=== PATIENT | female | born 1960 | race American Indian/Alaskan Native ===

== ENCOUNTER 2018-11-05 18:54 | Inpatient (IN) | payer MEDICAID | END 2018-11-09 20:23 | disposition home or self-care (01) | LOC: C.5S 11-06 07:17 → C.ER 18:54 → C.3T 23:10 → C.9E 23:48 ==

== ENCOUNTER 2018-11-26 09:56 | Outpatient (CLI) | payer MEDICAID | END 2018-11-26 11:31 | disposition still patient (30) | LOC: C.VASC 09:56 | DX: I87.2 Venous insufficiency (chronic) (peripheral) (principal) ==

== ENCOUNTER 2018-11-26 11:32 | Inpatient (IN) | payer MEDICAID ==
[2018-11-26 11:50] VITALS: BMI 36.3
[2018-11-26 12:58] LABS: BASO # 0.1 K/uL (0.0-0.2); BASO % 0.9 % (0.0-2.0); EOS # 0.2 K/uL (0.0-0.7); EOS % 2.8 % (0.0-4.0); HEMOGLOBIN 11.5 g/dL (11.0-16.0); LYMPH # 1.9 K/uL (1.0-4.3); LYMPH % 24.4 % (20.0-40.0); MEAN CELL VOLUME 75.9 fL (81.0-99.0); MEAN CORPUSCULAR HEMOGLOBIN 23.9 pg (27.0-31.0); MEAN CORPUSCULAR HGB CONC 31.5 g/dL (33.0-37.0); MEAN PLATELET VOLUME 9.6 fL (7.2-11.7); MONO # 0.6 K/uL (0.0-0.8); MONO % 8.4 % (0.0-10.0); NEUT # 4.9 K/uL (1.8-7.0); NEUT % 63.5 % (50.0-75.0); NRBC % 0.1 % (0.0-2.0); RBC 4.8 Mil/uL (3.80-5.20); RED CELL DISTRIBUTION WIDTH 14.4 % (11.5-14.5); WHITE BLOOD COUNT 7.6 K/uL (4.8-10.8)
[2018-11-26 13:02] LABS: URINE BACTERIA RARE (<OCC); URINE BILIRUBIN NEGATIVE (NEGATIVE); URINE BLOOD NEGATIVE (NEGATIVE); URINE CLARITY Clear (Clear); URINE COLOR Colorless (YELLOW); URINE GLUCOSE (UA) NORMAL (Normal); URINE LEUKOCYTE ESTERASE NEG Leu/uL (Negative); URINE PROTEIN NEGATIVE (NEGATIVE); URINE UROBILINOGEN NORMAL mg/dL (0.2-1.0)
--- NOTE | 2018-11-26 13:16 | RAD ---
HISTORY: Cough COMPARISON: Chest x-ray performed 10/14/15 TECHNIQUE: Chest PA and lateral FINDINGS: Examination limited by habitus. LUNGS: Mild interstitial prominence may reflect infection or edema. Please note that chest x-ray has limited sensitivity for the detection of pulmonary masses. PLEURA: No significant pleural effusion identified. No definite pneumothorax . CARDIOVASCULAR: Cardiomegaly. Faint atherosclerotic calcifications. OSSEOUS STRUCTURES: Degenerative changes. VISUALIZED UPPER ABDOMEN: Unremarkable. OTHER FINDINGS: None. IMPRESSION: Mild interstitial prominence may reflect infection or edema. Cardiomegaly.
[2018-11-26 13:27] LABS: ALB/GLOB RATIO 1.2 (1.0-2.1); ALBUMIN 4.2 g/dL (3.5-5.0); ALT/SGPT 13 U/L (9-52); AST/SGOT 40 U/L (14-36); BLOOD UREA NITROGEN 17 mg/dL (7-17); CALCIUM 9.6 mg/dl (8.6-10.4); GFR NON-AFRICAN AMERICAN > 60
--- NOTE | 2018-11-26 13:56 | C.PDOC ---
History Of Present Illness 58 year old female, whose past medical history includes uncontrolled hypertension, chr venous stasis, presents to the ED after being referred by vascular lab for evaluation of (+) DVT in right lower extremity. Patient was referred for Doppler study by Dr. Christianson. Pt reports, " was taking multiple HTN medication without lowering BP". Pt denies severe headache, dizziness, visual changes, focal deficits, neck pain, CP< SOB, palpitation, denies weakness, sensory or vascular deficits to B/L lEs. Appears comfortable, not in any apparent distress. Time Seen by Provider: 11/26/18 12:31 Chief Complaint (Nursing): Lower Extremity Problem/Injury History Per: Patient Past Medical History Reviewed: Historical Data, Nursing Documentation, Vital Signs Vital Signs: Last Vital Signs Temp 98.4 F 11/26/18 11:51 Pulse 53 L 11/26/18 11:51 Resp 18 11/26/18 11:51 BP 192/82 H 11/26/18 11:51 Pulse Ox 100 11/26/18 11:51 - Medical History PMH: Arthritis, CHF (diastolic), HTN, Hypercholesterolemia Denies: Atrial Fibrillation, Chronic Kidney Disease Surgical History: Hernia Repair - [facility] Procedures RELEASE TRANSVERSE COLON, OPEN APPROACH (11/05/18) REPAIR ABDOMINAL WALL, OPEN APPROACH (11/05/18) VACCINATION NEC (05/25/14) Family History: States: Unknown Family Hx - Social History Hx Tobacco Use: No Hx Alcohol Use: No Hx Substance Use: No - Immunization History Hx Tetanus Toxoid Vaccination: No Hx Influenza Vaccination: No Hx Pneumococcal Vaccination: No Review Of Systems Except As Marked, All Systems Reviewed And Found Negative. Constitutional: Negative for: Fever, Chills Eyes: Negative for: Vision Change ENT: Negative for: Ear Discharge Cardiovascular: Negative for: Chest Pain, Palpitations, Orthopnea, Paroxysmal Noc. Dyspnea, Edema, Light Headedness Respiratory: Negative for: Cough, Shortness of Breath Gastrointestinal: Negative for: Nausea, Vomiting, Abdominal Pain Musculoskeletal: Positive for: Leg Pain Neurological: Negative for: Weakness, Numbness, Headache, Dizziness Physical Exam - Physical Exam Appears: Well, Non-toxic, No Acute Distress Skin: Normal Color, Warm Head: Normacephalic Eye(s): bilateral: PERRL Throat: No Drooling Neck: Trachea Midline, Supple Cardiovascular: Rhythm Regular, No Murmur, No JVD Respiratory: No Decreased Breath Sounds, No Accessory Muscle Use, No Stridor, No Wheezing Gastrointestinal/Abdominal: Soft, No Tenderness, No Distention, No Guarding, No Rebound Back: No CVA Tenderness Extremity: Normal ROM, Calf Tenderness (right), Capillary Refill (good B/L <2sec), No Deformity, No Swelling, Other (skin discoloration B/L lower legs) ED Course And Treatment - Laboratory Results Result Diagrams: 11/26/18 12:51 11/26/18 12:51 Lab Results: PT 11.0 SECONDS (9.7-12.2) 11/26/18 12:00 INR 1.0 11/26/18 12:00 APTT 32 SECONDS (21-34) 11/26/18 12:00 Total Bilirubin 0.4 mg/dL (0.2-1.3) 11/26/18 12:51 AST 40 U/L (14-36) H D 11/26/18 12:51 ALT 13 U/L (9-52) 11/26/18 12:51 Alkaline Phosphatase 85 U/L (38-126) 11/26/18 12:51 Total Protein 7.7 g/dL (6.3-8.3) 11/26/18 12:51 Albumin 4.2 g/dL (3.5-5.0) 11/26/18 12:51 Globulin 3.5 gm/dL (2.2-3.9) 11/26/18 12:51 Albumin/Globulin Ratio 1.2 (1.0-2.1) 11/26/18 12:51 Urine Color Colorless (YELLOW) 11/26/18 12:51 Urine Clarity Clear (Clear) 11/26/18 12:51 Urine pH 7.0 (5.0-8.0) 11/26/18 12:51 Ur Specific [place] 1.005 (1.003-1.030) 11/26/18 12:51 Urine Protein Negative mg/dL (NEGATIVE) 11/26/18 12:51 Urine Glucose (UA) Normal mg/dL (Normal) 11/26/18 12:51 Urine Ketones Negative mg/dL (NEGATIVE) 11/26/18 12:51 Urine Blood Negative (NEGATIVE) 11/26/18 12:51 Urine Nitrate Negative (NEGATIVE) 11/26/18 12:51 Urine Bilirubin Negative (NEGATIVE) 11/26/18 12:51 Urine Urobilinogen Normal mg/dL (0.2-1.0) 11/26/18 12:51 Ur Leukocyte Esterase Neg Bravo/uL (Negative) 11/26/18 12:51 Urine RBC (Auto) < 1 /hpf (0-3) 11/26/18 12:51 Urine Bacteria Rare (<OCC) 11/26/18 12:51 ECG: Interpreted By Me, Viewed By Me Interpretation Of ECG: Sius shamika@52/min,LVH, T wave inversion in I,AVL, no acute ST-T changes O2 Sat by Pulse Oximetry: 100 (on RA) Pulse Ox Interpretation: Normal - Other Rad CXR X-Ray: Read By Radiologist Interpretation: Accession No. : [id number]. Patient Name / ID : AJITH HARTMANN / [id number]. Exam Date : 11/26/2018 12:50:26 ( Approved ). Study Comment : Sex / Age : F / 58Y. Creator : ismael stephens. Dictator : Rosy Velázquez MD. Taker Down : Dye Operator : Rosy Velázquez MD. Approver2 : Report Date : 11/26/2018 13:05:17. My Comment : . HISTORY: Cough. COMPARISON: Chest x-ray performed 10/14/15. TECHNIQUE: Chest PA and lateral. FINDINGS: Examination limited by habitus. LUNGS: Mild interstitial prominence may reflect infection or edema. Please note that chest x-ray has limited sensitivity for the detection of pulmonary masses. PLEURA: No significant pleural effusion identified. No definite pneumothorax . CARDIOVASCULAR: Cardiomegaly. Faint atherosclerotic calcifications. OSSEOUS STRUCTURES: Degenerative changes. VISUALIZED UPPER ABDOMEN: Unremarkable. OTHER FINDINGS: None. IMPRESSION: Mild interstitial prominence may reflect infection or edema. Cardiomegaly. - CT Scan/US CTA chest PE protocol Other Rad Studies (CT/US): Radiology Report Reviewed CT/US Interpretation: Accession No. : [id number]. Patient Name / ID : AJITH HARTMANN / [id number]. Exam Date : 11/26/2018 14:20:18 ( Approved ). Study Comment : Sex / Age : F / 58Y. Creator : Rosy Velázquez MD. Dictator : Rosy Velázquez MD. Taker Down : Dye Operator : Rosy Velázquez MD. Approver2 : Report Date : 11/26/2018 14:58:08. My Comment : . Date of service: 2018-11-26 14:20:18. CTA chest PE protocol. Indication: HTN, CP, DVT. Technique: Contiguous axial images were obtained through the chest with intravenous contrast enhancement. Sagittal and coronal reconstructions were generated and reviewed. This CT exam was performed using 1 or more of the following dose reduction techniques: Automated exposure control, adjustment of the MAA and/or kV according to patient size, and/or use of iterative reconstruction technique. IV contrast: 100 mL Visipaque 320 IV. . Radiation dose (DLP): 608.13 MGy-cm. Comparison: Chest x-ray performed 11/26/18. Findings: Visualized portions of the inferior thyroid gland appear unremarkable. The mediastinal and hilar vascular structures appear within normal limits. Cardiomegaly. No large central or segmental pulmonary embolus evident. Subtle mosaic perfusion. No focal consolidation. No pleural effusion. No pneumothorax. No suspicious pulmonary nodules measuring greater than 5 mm. Limited visualized portions of the upper abdomen appear grossly unremarkable. 15 mm and 5 mm probable splenules. Degenerative changes of the spine. Impression: No large central or segmental pulmonary embolus identified. Subtle mosaic perfusion reflect small airways disease. No focal consolidation. Cardiomegaly. Progress Note: Pt remained stable during the ED evaluation. Case discussed with and recommend to stabilize BP before start anticoagulation. Admisison to tele arranged. Critical Care Time - Critical Care Note Total Time (in mins): 30 Documented critical care: time excludes all time spent performing seperately billable procedures. Disposition - Disposition Disposition: HOSPITALIZED Disposition Time: 14:30 Condition: STABLE Forms: [facility] (Mongolian) - Clinical Impression Clinical Impression: DVT (deep venous thrombosis), Uncontrolled hypertension, Cardiomegaly - PA / PROTOTYPE MACHINIST / Resident Statement MD/DO has reviewed & agrees with the documentation as recorded. - Scribe Statement The provider has reviewed the documentation as recorded by the Scribe (Cadence Evangelista) All medical record entries made by the Scribe were at my direction and personally dictated by me. I have reviewed the chart and agree that the record accurately reflects my personal performance of the history, physical exam, medical decision making, and the department course for this patient. I have also personally directed, reviewed, and agree with the discharge instructions and disposition.
[2018-11-26] MEDS ORDERED: Iodixanol 320 MG/ML 100 ML BOTTLE IV ONE (14:06)
[2018-11-26 14:48] VITALS: RESP 20
--- NOTE | 2018-11-26 15:01 | CT ---
Date of service: 2018-11-26 14:20:18 CTA chest PE protocol Indication: HTN, CP, DVT Technique: Contiguous axial images were obtained through the chest with intravenous contrast enhancement. Sagittal and coronal reconstructions were generated and reviewed. This CT exam was performed using 1 or more of the following dose reduction techniques: Automated exposure control, adjustment of the MAA and/or kV according to patient size, and/or use of iterative reconstruction technique. IV contrast: 100 mL Visipaque 320 IV Radiation dose (DLP): 608.13 MGy-cm. Comparison: Chest x-ray performed 11/26/18 Findings: Visualized portions of the inferior thyroid gland appear unremarkable. The mediastinal and hilar vascular structures appear within normal limits. Cardiomegaly. No large central or segmental pulmonary embolus evident. Subtle mosaic perfusion. No focal consolidation. No pleural effusion. No pneumothorax. No suspicious pulmonary nodules measuring greater than 5 mm. Limited visualized portions of the upper abdomen appear grossly unremarkable. 15 mm and 5 mm probable splenules. Degenerative changes of the spine. Impression: No large central or segmental pulmonary embolus identified. Subtle mosaic perfusion reflect small airways disease. No focal consolidation. Cardiomegaly.
[2018-11-26 16:22] LABS: B-TYPE NATRIURETIC PEPTIDE 383 pg/mL (0-900)
[2018-11-26] MEDS: Enoxaparin 100 mg Syringe SC SCH (19:30)
[2018-11-27] MEDS: Enoxaparin 100 mg Syringe SC SCH (10:31)
--- NOTE | 2018-11-27 18:53 | PN ---
DATE: 11/27/2018 SUBJECTIVE: The patient is seen today, 11/27/2018. She is not in any cardiopulmonary distress and the patient is tolerating the current treatment of anticoagulant. PHYSICAL EXAMINATION: VITAL SIGNS: Blood pressure 145/74, temperature 97.8, respiratory rate 20, and pulse 87. HEENT: Pupils equal, reactive to light. Normal-appearing mucosa of the conjunctivae, oropharynx and nasal membrane mucosa. NECK: Supple. No JVD. No carotid bruit. No lymph nodes. No thyromegaly. CHEST AND LUNGS: Bilateral symmetrical expansion. Good air exchange. No rales, no rhonchi. CARDIOVASCULAR SYSTEM: PMI not localized. S1 and S2. No additional sounds. ABDOMEN: Normoactive bowel sounds. No tenderness. No organomegaly. No masses. EXTREMITIES: No cyanosis, no clubbing, no edema. ASSISTANT COUNSEL: Alert, awake, oriented x2. No neurological deficit could be appreciated. ASSESSMENT: 1. Acute deep venous thrombosis of the right peroneal vein. 2. Hypertension. 3. Status post repair of abdominal hernia. PLAN: Continue current treatment and her insurance were approved Xarelto or [employer]. We will discharge the patient on the same to follow up with her primary care physician and the vascular surgeon. Sonali Santiago MD
[2018-11-28 01:14] VITALS: O2SAT 99
--- NOTE | 2018-11-28 06:18 | HP ---
HISTORY OF PRESENT ILLNESS: This is a 58-year-old female with history of hypertension, recently underwent ventral hernia abdominal surgery and was referred by Vascular Surgery for venous Dopplers of both lower extremities. The patient was found to have acute deep venous thrombosis of right peroneal vein. The patient was referred to emergency room for evaluation and admitted. Other review of system is negative. ALLERGIES: POSITIVE FOR PENICILLIN AND IBUPROFEN. SOCIAL HISTORY: Denies smoking, EtOH or substance abuse. FAMILY HISTORY: Noncontributory. MEDICATIONS: Reviewed and ordered as per MAR. PAST MEDICAL HISTORY: Hypertension, status post abdominal ventral hernia repair. PHYSICAL EXAMINATION: GENERAL: The patient was in bed, not in any cardiopulmonary distress. VITAL SIGNS: Blood pressure 150/89, temperature 98.5, respiratory rate 20, and pulse 65. HEENT: Pupils equal and reactive to light. Normal-appearing mucosa of the conjunctivae, oropharynx and nasal membrane mucosa. NECK: Supple. No JVD. No carotid bruit. No lymph node. No thyromegaly. CHEST AND LUNGS: Bilateral symmetrical expansion. Good air exchange. No rales. No rhonchi. CARDIOVASCULAR SYSTEM: PMI not localized. S1 and S2. No additional sounds. ABDOMEN: Normoactive bowel sounds. No tenderness. No organomegaly. No masses. EXTREMITIES: No cyanosis, no clubbing, no edema. CENTRAL NERVOUS SYSTEM: Alert, awake, oriented x2. No neurological deficit could be appreciated. ASSESSMENT: Acute deep venous thrombosis of right peroneal vein, hypertension, venous insufficiency, status post herniorrhaphy of abdominal ventral hernia. PLAN: Continue current medications. Resume the patient's antihypertensive medications. Vascular Surgery consult. We will start Lovenox 1 mg/kg every 12 hours. Sonali Santiago MD
--- NOTE | 2018-11-28 06:37 | CARD ---
APPROVED REPORT Date of service: 11/26/2018 EKG Measurement Heart [id number] <Conclusion> Sinus bradycardia with marked sinus arrhythmia Moderate voltage criteria for LVH, may be normal variant T wave abnormality, consider lateral ischemia Abnormal ECG
[2018-11-28 07:39] VITALS: BP 144/79; PULSE 53; TEMP 98
--- NOTE | 2018-11-29 02:36 | DS ---
REASON FOR ADMISSION: This is a 58-year-old female with history of multiple medical problems who was admitted for acute deep venous thrombosis of left peroneal vein. COURSE OF HOSPITALIZATION: The patient was admitted to the medical floor, and she was started on Lovenox 1 mg/kg every 12 hours. The patient had a vascular surgery consult done by Dr. Eric Christianson. The patient was referred by him for the study that came back positive. The patient tolerated Lovenox well. Dr. Christianson discharged the patient on Eliquis 10 mg twice a day for seven days to be followed by Eliquis 5 mg twice a day for six more months. FINAL DIAGNOSES: 1. Acute deep venous thrombosis of left peroneal vein. 2. Hypertension. [facility] MD Jack
== END 2018-11-28 13:55 | disposition home or self-care (01) | DRG 543 ==
LOC: C.ER 11:32 → C.6T 15:01
PROVIDERS: ADMIT Internal Medicine; ATTEND Internal Medicine
DX: I82.4Z2 Acute embolism and thrombosis of unspecified deep veins of left distal lower extremity (principal); I50.32 Chronic diastolic (congestive) heart failure; I11.0 Hypertensive heart disease with heart failure; I87.2 Venous insufficiency (chronic) (peripheral); E78.00 Pure hypercholesterolemia, unspecified; M19.90 Unspecified osteoarthritis, unspecified site; Z79.01 Long term (current) use of anticoagulants

== ENCOUNTER 2018-12-25 10:14 | Inpatient (IN) | payer MEDICAID, OTHER ==
[2018-12-25 10:14] VITALS: BMI 37.1
--- NOTE | 2018-12-25 11:16 | C.PDOC ---
History Of Present Illness 58 y/o female comes to ed for admission for surgery for umbilical hernia. pt diagnosed with right dvt on 11/26, was put on eliquis and stopped on 12/20 in preparation for surgery. pt drank bottle water at 530 and 830 am today and took htn medications. last meal 5 pm yesterday. Time Seen by Provider: 12/25/18 10:41 Chief Complaint (Nursing): Medical Clearance History Per: Patient History/Exam Limitations: no limitations Severity: Mild Reports Recently: Treated By A Physician, Hospitalized Past Medical History Reviewed: Historical Data, Nursing Documentation, Vital Signs Vital Signs: Last Vital Signs Temp 98 F 12/25/18 10:35 Pulse 55 L 12/25/18 10:35 Resp 20 12/25/18 10:35 BP 190/100 H 12/25/18 10:35 Pulse Ox 99 12/25/18 10:35 Primary Care Provider: Yonis Elizondo - Medical History PMH: Arthritis, CHF (diastolic), HTN, Hypercholesterolemia Denies: Atrial Fibrillation, Chronic Kidney Disease Other PMH: dvt right lower extremity Surgical History: Hernia Repair, - [facility] Procedures RELEASE TRANSVERSE COLON, OPEN APPROACH (11/05/18) REPAIR ABDOMINAL WALL, OPEN APPROACH (11/05/18) VACCINATION NEC (05/25/14) Family History: States: Unknown Family Hx - Social History Hx Tobacco Use: No Hx Alcohol Use: No Hx Substance Use: No - Immunization History Hx Tetanus Toxoid Vaccination: No Hx Influenza Vaccination: No Hx Pneumococcal Vaccination: No Review Of Systems Constitutional: Negative for: Fever, Chills Cardiovascular: Negative for: Chest Pain Respiratory: Negative for: Cough, Shortness of Breath Gastrointestinal: Positive for: Abdominal Pain Musculoskeletal: Negative for: Leg Pain Skin: Negative for: Rash Physical Exam - Physical Exam Appears: Non-toxic, No Acute Distress Skin: Warm, Dry Head: Atraumatic, Normacephalic Neck: Supple Cardiovascular: Rhythm Regular, No Murmur Respiratory: No Decreased Breath Sounds, No Rales, No Rhonchi, No Wheezing Gastrointestinal/Abdominal: Soft, Tenderness (mild mid abdominal tenderness, recent well healed transverse mid abdomen scar), No Distention, No Guarding, No Rebound, Other (slight swelling noted at umbilicus. reducible) Back: No CVA Tenderness Extremity: Normal ROM, No Tenderness, No Swelling ED Course And Treatment - Laboratory Results Result Diagrams: 12/25/18 11:31 12/25/18 11:31 ECG: Interpreted By Me, Viewed By Me ECG Rhythm: Sinus Bradycardia ECG Interpretation: No Changes From Prior (11/26/18) Interpretation Of ECG: Sinus Bradycardia with premature atrial complexes, minimal voltage criteria for LVH, may be normal variant T wave abnormality Rate From EC O2 Sat by Pulse Oximetry: 99 (RA) Pulse Ox Interpretation: Normal - Other Rad CXR X-Ray: Viewed By Me, Read By Radiologist Interpretation: IMPRESSION: Mild to moderate interstitial prominence may reflec t infection or edema. Cardiomegaly. Medical Decision Making Medical Decision Making: pt here for umbilical hernia repair last drank water 0830, RN Tawnya in OR notified pre op labs, ekg. cxr ekg today compared to 11/26/18,unchanged. Disposition Discussed With DrYumiko: Eric Christianson Doctor Will See Patient In The: Hospital - Disposition Disposition: HOSPITALIZED Disposition Time: 12:22 Condition: GOOD - Clinical Impression Clinical Impression: Umbilical hernia
[2018-12-25 11:38] LABS: BASO % 0.6 % (0.0-2.0); EOS # 0.2 K/uL (0.0-0.7); EOS % 2.7 % (0.0-4.0); HEMOGLOBIN 11.3 g/dL (11.0-16.0); LYMPH # 1.7 K/uL (1.0-4.3); LYMPH % 27.6 % (20.0-40.0); MEAN CELL VOLUME 75.4 fL (81.0-99.0); MEAN CORPUSCULAR HEMOGLOBIN 24.3 pg (27.0-31.0); MEAN CORPUSCULAR HGB CONC 32.3 g/dL (33.0-37.0); MEAN PLATELET VOLUME 9.3 fL (7.2-11.7); MONO # 0.5 K/uL (0.0-0.8); MONO % 8.8 % (0.0-10.0); NEUT # 3.6 K/uL (1.8-7.0); NEUT % 60.3 % (50.0-75.0); NRBC % 0.1 % (0.0-2.0); RBC 4.62 Mil/uL (3.80-5.20); RED CELL DISTRIBUTION WIDTH 15.5 % (11.5-14.5)
[2018-12-25 11:47] LABS: PROTHROMBIN TIME 11.3 SECONDS (9.7-12.2)
[2018-12-25 12:07] LABS: ALB/GLOB RATIO 1.1 (1.0-2.1); ALT/SGPT 23 U/L (9-52); AST/SGOT 30 U/L (14-36); BLOOD UREA NITROGEN 12 mg/dL (7-17); CALCIUM 9.5 mg/dl (8.6-10.4); GFR NON-AFRICAN AMERICAN > 60
--- NOTE | 2018-12-25 12:32 | RAD ---
HISTORY: Pre Op COMPARISON: Chest x-ray performed 11/26/18 TECHNIQUE: Chest PA and lateral, 2 views FINDINGS: Examination limited by habitus. LUNGS: [id number] interstitial prominence may reflect infection or edema. PLEURA: No significant pleural effusion identified. No definite pneumothorax . CARDIOVASCULAR: Cardiomegaly. OSSEOUS STRUCTURES: Degenerative changes. VISUALIZED UPPER ABDOMEN: Unremarkable. OTHER FINDINGS: None. IMPRESSION: Mild to moderate interstitial prominence may reflect infection or edema. Cardiomegaly.
[2018-12-25 12:50] LABS: URINE BILIRUBIN NEGATIVE (NEGATIVE); URINE BLOOD NEGATIVE (NEGATIVE); URINE CLARITY Clear (Clear); URINE COLOR Straw (YELLOW); URINE GLUCOSE (UA) NORMAL (Normal); URINE LEUKOCYTE ESTERASE NEG Leu/uL (Negative); URINE PROTEIN NEGATIVE (NEGATIVE); URINE UROBILINOGEN NORMAL mg/dL (0.2-1.0)
[2018-12-25] MEDS ORDERED: Doxycycline 100 mg Inj ONE (14:57)
[2018-12-25] MEDS ORDERED: Lidocaine Hydrochloride 0 ML INJ ONE (14:58)
[2018-12-25] MEDS ORDERED: Bupivacaine 0.25% 20 ML INJ IJ ONE (14:58)
[2018-12-25] MEDS ORDERED: Midazolam 2 MG/2 ML VIAL ONE (15:03)
[2018-12-25] MEDS ORDERED: Propofol 10 mg/ml Inj (20 ML) ONE (15:03)
[2018-12-25] MEDS ORDERED: Rocuronium 10 mg/ml (10 ml) ONE (15:06)
[2018-12-25] MEDS ORDERED: Succinylcholine Chloride 20 mg/ml Syr (5 ml) IV ONE (15:06)
[2018-12-25] MEDS ORDERED: Neostigmine 1:1000 (1 mg/ml) Inj ONE (15:42)
[2018-12-25] MEDS ORDERED: Bacitracin Ointment 30 GM TUBE ONE (15:43)
[2018-12-25] MEDS: HYDROmorphone 0.5 mg/0.5 ml ISec IVP PRN ×3 (16:10→17:24)
[2018-12-25] MEDS: Dextrose 5%/0.45% NS 1,000 ML IV SCH ×2 (17:50→22:00)
--- NOTE | 2018-12-25 21:01 | CP.PCM.CON ---
History of Present Illness - History of Present Illness History of Present Illness: 58 y/o female transferred to ICU for monitoring for bradycardia as requested by the Stage Settings Painter.Patient had umbilical hernia repair today.patient states that "my pulse is always low.My doctor knows about it".Preop EKG with HR of 44 h/o HTN,hyperlipidemia,CHF(diastolic dysfunction),Right lower extremity DVT following previous Hernia repair on Eliquis c/o pain at site of surgery,nausea and Bloated feeling BP elevated Review of Systems - Review of Systems Systems not reviewed;Unavailable: Unstable Vital Signs - Constitutional Constitutional: absent: Anorexia, Headache - EENT Eyes: absent: Blurred Vision, Irritation Ears: absent: Dizziness Nose/Mouth/Throat: absent: Nasal Congestion, Sore Throat - Cardiovascular Cardiovascular: absent: Chest Pain, Dyspnea, Edema - Respiratory Respiratory: absent: Cough, Dyspnea - Gastrointestinal Gastrointestinal: Abdominal Pain, Bloating, Nausea. absent: Vomiting - Genitourinary Genitourinary: absent: Dysuria - Musculoskeletal Musculoskeletal: absent: Stiffness, Tingling - Integumentary Integumentary: absent: Sores - Neurological Neurological: absent: Dizziness - Endocrine Endocrine: absent: Fatigue, Palpitations - Hematologic/Lymphatic Hematologic: absent: Easy Bleeding Past Patient History - Infectious Disease Hx of Infectious Diseases: None - Tetanus Immunizations Tetanus Immunization: >10 years Ago - Past Medical History & Family History Past Medical History?: Yes - Past Social History Smoking Status: Never Smoked Chewing Tobacco Use: No Cigar Use: No Alcohol: None Drugs: Denies Home Situation {Lives}: With Family - CARDIAC Hx Atrial Fibrillation: No Hx Congestive Heart Failure: Yes (diastolic) Hx Hypercholesterolemia: Yes Hx Hypertension: Yes - PULMONARY Hx Respiratory Disorders: No - NEUROLOGICAL Hx Neurological Disorder: No - HEENT Hx HEENT Problems: No - RENAL Hx Chronic Kidney Disease: No - ENDOCRINE/METABOLIC Hx Endocrine Disorders: No - HEMATOLOGICAL/ONCOLOGICAL Hx Blood Disorders: No - INTEGUMENTARY Hx Dermatological Problems: No - MUSCULOSKELETAL/RHEUMATOLOGICAL Hx Arthritis: Yes - GASTROINTESTINAL Hx Gastrointestinal Disorders: No - GENITOURINARY/GYNECOLOGICAL Hx Genitourinary Disorders: No - PSYCHIATRIC Hx Substance Use: No - SURGICAL HISTORY Hx Section: Yes (2X) - ANESTHESIA Hx Anesthesia: Yes Hx Anesthesia Reactions: No Hx Malignant Hyperthermia: No Meds Allergies/Adverse Reactions: Allergies Allergy/AdvReac Type Severity Reaction Status Date / Time ibuprofen AdvReac Verified 12/25/18 10:37 Penicillins AdvReac Verified 12/25/18 10:37 - Medications Medications: Current Medications Docusate Sodium (Colace) 100 mg PO BID [facility] Enoxaparin Sodium (Lovenox) 30 mg SC 1000,2200 [facility] Dextrose/Sodium Chloride (Dextrose 5%/0.45% Ns 1000 Ml) 1,000 mls @ 80 mls/hr IV .[id number] [facility] Last Admin: 12/25/18 17:50 Dose: 0 mls Ketorolac Tromethamine (Toradol) 30 mg IVP Q6 PRN PRN Reason: pain 8-10 Stop: 12/30/18 16:23 Oxycodone/Acetaminophen (Percocet 5/325 Mg Tab) 2 tab PO Q4H PRN PRN Reason: pain Stop: 12/28/18 17:01 Pantoprazole Sodium (Protonix Inj) 40 mg IVP DAILY [facility] Physical Exam - Constitutional Appears: No Acute Distress - Head Exam Head Exam: ATRAUMATIC, NORMAL INSPECTION, NORMOCEPHALIC - Eye Exam Eye Exam: EOMI, Normal appearance, PERRL - ENT Exam ENT Exam: Mucous Membranes Moist - Neck Exam Neck exam: Positive for: Normal Inspection - Respiratory Exam Respiratory Exam: Clear to Auscultation Bilateral. absent: Respiratory Distress - Cardiovascular Exam Cardiovascular Exam: Bradycardia. absent: JVD - GI/Abdominal Exam GI & Abdominal Exam: Soft, Tenderness. absent: Rigid Additional comments: t - Extremities Exam Extremities exam: Positive for: pedal pulses present. Negative for: calf tenderness, pedal edema - Neurological Exam Neurological exam: Alert, Oriented x3 - Psychiatric Exam Psychiatric exam: Normal Affect - Skin Skin Exam: Normal Color Results - Vital Signs Recent Vital Signs: Last Vital Signs Temp 97.5 F L 12/25/18 18:18 Pulse 43 L 12/25/18 19:30 Resp 20 12/25/18 18:18 BP 170/88 H 12/25/18 19:30 Pulse Ox 98 12/25/18 18:18 - Labs Result Diagrams: 12/25/18 11:31 12/25/18 11:31 Labs: Laboratory Results - last 24 hr 12/25/18 12/25/18 12/25/18 11:31 11:31 11:31 WBC 6.0 RBC 4.62 Hgb 11.3 Hct 34.9 MCV 75.4 L MCH 24.3 L MCHC 32.3 L RDW 15.5 H Plt Count 178 MPV 9.3 Neut % (Auto) 60.3 Lymph % (Auto) 27.6 [place] % (Auto) 8.8 Eos % (Auto) 2.7 Baso % (Auto) 0.6 Neut # (Auto) 3.6 Lymph # (Auto) 1.7 [place] # (Auto) 0.5 Eos # (Auto) 0.2 Baso # (Auto) 0.0 PT 11.3 INR 1.0 APTT 31.0 Sodium 138 Potassium 4.3 Chloride 98 Carbon Dioxide 32 H Anion Gap 12 BUN 12 Creatinine 0.6 L Est GFR ( Amer) > 60 Est GFR (Non-Af Amer) > 60 Random Glucose 83 Calcium 9.5 Total Bilirubin 0.4 AST 30 ALT 23 Alkaline Phosphatase 87 Total Protein 7.7 Albumin 4.0 Globulin 3.7 Albumin/Globulin Ratio 1.1 Urine Color Urine Clarity Urine pH Ur Specific [place] Urine Protein Urine Glucose (UA) Urine Ketones Urine Blood Urine Nitrate Urine Bilirubin Urine Urobilinogen Ur Leukocyte Esterase Urine WBC (Auto) Urine RBC (Auto) Blood Type Antibody Screen 12/25/18 12/25/18 11:31 12:40 WBC RBC Hgb Hct MCV MCH MCHC RDW Plt Count MPV Neut % (Auto) Lymph % (Auto) [place] % (Auto) Eos % (Auto) Baso % (Auto) Neut # (Auto) Lymph # (Auto) [place] # (Auto) Eos # (Auto) Baso # (Auto) PT INR APTT Sodium Potassium Chloride Carbon Dioxide Anion Gap BUN Creatinine Est GFR ( Amer) Est GFR (Non-Af Amer) Random Glucose Calcium Total Bilirubin AST ALT Alkaline Phosphatase Total Protein Albumin Globulin Albumin/Globulin Ratio Urine Color Straw Urine Clarity Clear Urine pH 7.0 Ur Specific [place] 1.004 Urine Protein Negative Urine Glucose (UA) Normal Urine Ketones Negative Urine Blood Negative Urine Nitrate Negative Urine Bilirubin Negative Urine Urobilinogen Normal Ur Leukocyte Esterase Neg Urine WBC (Auto) < 1 Urine RBC (Auto) < 1 Blood Type A POSITIVE Antibody Screen Negative - EKG Data EKG Interpreted by: Myself - Imaging and Cardiology Chest x-ray Status: Image reviewed by me, Report reviewed by me Assessment & Plan - Assessment and Plan (Free Text) Assessment: 1.Bradycardia-chronic per history,patient post op ,will monitor in ICU 2.HTN/ h/o CHF-BP control restart home meds 3.R LE DVT-restart eliquis in am 4.Microcytosis-Iron ,TIBC stool OB 5.S/p Umbilical hernia repair today analgesics
[2018-12-25] MEDS: Enoxaparin 30 mg Syringe SC SCH (22:15)
--- NOTE | 2018-12-25 22:58 | CP.PCM.PN ---
Subjective - Date & Time of Evaluation Date of Evaluation: 12/25/18 Time of Evaluation: 19:30 - Subjective Subjective: I was called for Bradycardia of HR 43 Denies chest pain and dyspnea BP stable Not on HR limiting meds Pain meds may be contributing Transfer to ICU for further observation Atropine at bedside D/W ICU attending and Vero Christianson Further Cardiac management as per Dr. Hogue (Primary ultrasonic welding machine operator) Official consult placed for Dr. Hogue Objective - Vital Signs/Intake and Output Vital Signs (last 24 hours): Temp Pulse Resp BP Pulse Ox 97.5 F L 51 L 14 189/130 H 97 12/25/18 18:18 12/25/18 22:33 12/25/18 22:33 12/25/18 22:33 12/25/18 22:33 Intake and Output: 12/25/18 12/26/18 18:59 06:59 Intake Total 950 Balance 950 - Medications Medications: Current Medications Docusate Sodium (Colace) 100 mg PO BID [facility] Enoxaparin Sodium (Lovenox) 30 mg SC 1000,2200 [facility] Last Admin: 12/25/18 22:15 Dose: 30 mg Hydralazine HCl (Apresoline) 25 mg PO Q8H [facility] Last Admin: 12/25/18 22:00 Dose: 25 mg Dextrose/Sodium Chloride (Dextrose 5%/0.45% Ns 1000 Ml) 1,000 mls @ 80 mls/hr IV .[id number] [facility] Last Admin: 12/25/18 22:00 Dose: 80 mls/hr Lisinopril (Zestril) 20 mg PO DAILY [facility] Oxycodone/Acetaminophen (Percocet 5/325 Mg Tab) 2 tab PO Q4H PRN PRN Reason: pain Stop: 12/28/18 17:01 Pantoprazole Sodium (Protonix Inj) 40 mg IVP DAILY [facility] - Labs Labs: 12/25/18 11:31 12/25/18 11:31 PT 11.3 SECONDS (9.7-12.2) 12/25/18 11:31 INR 1.0 12/25/18 11:31 APTT 31.0 SECONDS (21-34) 12/25/18 11:31
[2018-12-26] MEDS: Oxycodone/Acetaminophen 5/325 mg Tab PO PRN ×2 (02:45→07:49)
--- NOTE | 2018-12-26 06:05 | OP ---
PROCEDURE DATE: 12/25/2018 PREOPERATIVE DIAGNOSIS: Umbilical hernia. POSTOPERATIVE DIAGNOSES: Large umbilical and ventral hernia with extensive intraabdominal adhesions. PROCEDURE PERFORMED: Repair of umbilical and ventral hernia with extensive intraabdominal lysis of adhesions. SURGEON: Eric Christianson MD ANESTHESIA: General. BLOOD LOSS: 30 mL. POSTOPERATIVE CONDITION: Stable. INDICATIONS FOR SURGERY: This is a 58-year-old female who previously underwent an incarcerated ventral hernia repair. She had a preexisting hernia in a separate area, which is now repaired. Now, the hernia has been chronically partially incarcerated. GROSS FINDINGS: There was a large defect in the fascia at the umbilical area. It extended cephalad and also had a ventral hernia component. It contained bowel and there were multiple adhesions which had to be taken down in order for the hernia repair to be done. A primary repair was done with interrupted 0 Prolene suture. PROCEDURE: The patient was taken to the operating room. General anesthesia was administered. A supraumbilical incision was made over the hernia and carried down through the skin and subcutaneous tissue into the hernia sac. The hernia sac was opened and it was noted that there was a much larger defect that appeared to be present on exam. For this reason, the incision was extended bilaterally and the hernia sac was completely dissected free down to the fascia. Both, small and large bowel were taken off the hernia sac through extensive dissection as well as omentum. Small serosal tears were repaired with silk. A bleeding mesenteric blood vessel was also repaired. Once the fascia had been cleansed of all adhesions, repair was accomplished with interrupted 0 Prolene suture. There was a large tissue defect noted in the subcutaneous space and a full-thickness advancement flap closure was performed totaling 24 sq cm. This was done by widely mobilizing a full-thickness flap making counterincisions using multiple layers of Monocryl subcuticular Monocryl and skin clips. The patient tolerated the procedure well, returned to recovery room in stable condition. Eric Christianson MD
[2018-12-26 06:57] LABS: BASO % 0.6 % (0.0-2.0); EOS # 0.1 K/uL (0.0-0.7); EOS % 1.2 % (0.0-4.0); LYMPH # 1.3 K/uL (1.0-4.3); LYMPH % 15.3 % (20.0-40.0); MEAN CELL VOLUME 75.9 fL (81.0-99.0); MEAN CORPUSCULAR HEMOGLOBIN 24.3 pg (27.0-31.0); MEAN PLATELET VOLUME 8.9 fL (7.2-11.7); MONO # 0.7 K/uL (0.0-0.8); MONO % 7.9 % (0.0-10.0); NEUT # 6.3 K/uL (1.8-7.0); RBC 4.55 Mil/uL (3.80-5.20); RED CELL DISTRIBUTION WIDTH 15.3 % (11.5-14.5); WHITE BLOOD COUNT 8.4 K/uL (4.8-10.8)
[2018-12-26 07:11] LABS: IRON 36 ug/dL (37-170)
[2018-12-26 07:19] LABS: ALB/GLOB RATIO 1.2 (1.0-2.1); ALBUMIN 3.8 g/dL (3.5-5.0); ALT/SGPT 19 U/L (9-52); AST/SGOT 22 U/L (14-36); BLOOD UREA NITROGEN 9 mg/dL (7-17); CALCIUM 9.3 mg/dl (8.6-10.4); GFR NON-AFRICAN AMERICAN > 60
[2018-12-26 07:21] LABS: % IRON SATURATION 12 (20-55); TOTAL IRON BINDING CAPACITY 300 ug/dL (250-450)
[2018-12-26] MEDS: Dextrose 5%/0.45% NS 1,000 ML IV SCH (07:28)
[2018-12-26] MEDS: Enoxaparin 30 mg Syringe SC SCH ×2 (09:54→21:41)
--- NOTE | 2018-12-26 11:02 | CARD ---
APPROVED REPORT Date of service: 12/25/2018 EKG Measurement Heart [id number] <Conclusion> Sinus bradycardia with marked sinus arrhythmia T wave abnormality, consider inferolateral ischemia Abnormal ECG
--- NOTE | 2018-12-26 11:02 | CARD ---
APPROVED REPORT Date of service: 12/25/2018 EKG Measurement Heart [id number] <Conclusion> Marked sinus bradycardia with premature atrial complexes Minimal voltage criteria for LVH, may be normal variant T wave abnormality, consider lateral ischemia Abnormal ECG
--- NOTE | 2018-12-26 21:59 | CP.PCM.CON ---
History of Present Illness - History of Present Illness History of Present Illness: 58 year old lady with hx of HTN and mitral stenosis (rheumatic) stable non- significant.recent cardiac w/u was uneventful, had ventral hernia repair, did well, known with sinus shamika 40's, hemodynamically stable. Review of Systems - Review of Systems Systems not reviewed;Unavailable: Acuity of Condition - Constitutional Constitutional: Anorexia, Weakness - EENT Eyes: absent: Discharge Ears: absent: Ear Discharge, Dizziness Nose/Mouth/Throat: absent: Epistaxis - Cardiovascular Cardiovascular: absent: Acrocyanosis, Chest Pain, Diaphoresis, Dyspnea, Lightheadedness, Palpitations, Syncope - Respiratory Respiratory: absent: Cough, Dyspnea, Hemoptysis - Gastrointestinal Gastrointestinal: Abdominal Pain. absent: Diarrhea, Hematochezia, Vomiting - Reproductive: Female Reproductive:Female: Post Menopausal Past Patient History - Infectious Disease Hx of Infectious Diseases: None - Tetanus Immunizations Tetanus Immunization: >10 years Ago - Past Medical History & Family History Past Medical History?: Yes - Past Social History Smoking Status: Never Smoked Chewing Tobacco Use: No Cigar Use: No Alcohol: None Drugs: Denies Home Situation {Lives}: With Family - CARDIAC Hx Atrial Fibrillation: No Hx Congestive Heart Failure: Yes (diastolic) Hx Hypercholesterolemia: Yes Hx Hypertension: Yes - PULMONARY Hx Respiratory Disorders: No - NEUROLOGICAL Hx Neurological Disorder: No - HEENT Hx HEENT Problems: No - RENAL Hx Chronic Kidney Disease: No - ENDOCRINE/METABOLIC Hx Endocrine Disorders: No - HEMATOLOGICAL/ONCOLOGICAL Hx Blood Disorders: No - INTEGUMENTARY Hx Dermatological Problems: No - MUSCULOSKELETAL/RHEUMATOLOGICAL Hx Arthritis: Yes - GASTROINTESTINAL Hx Gastrointestinal Disorders: No - GENITOURINARY/GYNECOLOGICAL Hx Genitourinary Disorders: No - PSYCHIATRIC Hx Substance Use: No - SURGICAL HISTORY Hx Section: Yes (2X) - ANESTHESIA Hx Anesthesia: Yes Hx Anesthesia Reactions: No Hx Malignant Hyperthermia: No Meds Allergies/Adverse Reactions: Allergies Allergy/AdvReac Type Severity Reaction Status Date / Time ibuprofen AdvReac Verified 12/25/18 10:37 Penicillins AdvReac Verified 12/25/18 10:37 - Medications Medications: Current Medications Acetaminophen (Tylenol 325mg Tab) 650 mg PO Q4 PRN PRN Reason: Pain, moderate (4-7) Last Admin: 12/26/18 21:43 Dose: 650 mg Docusate Sodium (Colace) 100 mg PO BID [facility] Last Admin: 12/26/18 09:53 Dose: 100 mg Enoxaparin Sodium (Lovenox) 30 mg SC 1000,2200 [facility] Last Admin: 12/26/18 21:41 Dose: 30 mg Hydralazine HCl (Apresoline) 25 mg PO Q8 [facility] Last Admin: 12/26/18 21:41 Dose: 25 mg Hydrochlorothiazide (Hydrodiuril) 25 mg PO DAILY [facility] Last Admin: 12/26/18 09:54 Dose: 25 mg Lisinopril (Zestril) 20 mg PO DAILY [facility] Last Admin: 12/26/18 10:15 Dose: 20 mg Pantoprazole Sodium (Protonix Inj) 40 mg IVP DAILY [facility] Last Admin: 12/26/18 09:53 Dose: 40 mg Physical Exam - Constitutional Appears: Non-toxic - Head Exam Head Exam: ATRAUMATIC - Eye Exam Eye Exam: EOMI - ENT Exam ENT Exam: Mucous Membranes Moist - Neck Exam Neck exam: Negative for: Lymphadenopathy, Thyromegaly - Respiratory Exam Respiratory Exam: NORMAL BREATHING PATTERN. absent: Wheezes - Cardiovascular Exam Cardiovascular Exam: REGULAR RHYTHM, Systolic Murmur. absent: Gallop - GI/Abdominal Exam GI & Abdominal Exam: Normal Bowel Sounds, Tenderness. absent: Organomegaly - Rectal Exam Rectal Exam: Deferred - Extremities Exam Extremities exam: Positive for: normal capillary refill. Negative for: calf tenderness, tenderness - Neurological Exam Neurological exam: Alert, Oriented x3 - Psychiatric Exam Psychiatric exam: Normal Mood - Skin Skin Exam: Dry Results - Vital Signs Recent Vital Signs: Last Vital Signs Temp 98.2 F 12/26/18 15:20 Pulse 58 L 12/26/18 15:30 Resp 20 12/26/18 15:20 BP 125/70 12/26/18 15:20 Pulse Ox 96 12/26/18 15:20 - Labs Result Diagrams: 12/26/18 06:54 12/26/18 06:54 Labs: Laboratory Results - last 24 hr 12/26/18 12/26/18 12/26/18 06:54 06:54 06:54 WBC 8.4 RBC 4.55 Hgb 11.0 Hct 34.5 MCV 75.9 L MCH 24.3 L MCHC 32.0 L RDW 15.3 H Plt Count 159 MPV 8.9 Neut % (Auto) 75.0 Lymph % (Auto) 15.3 L [place] % (Auto) 7.9 Eos % (Auto) 1.2 Baso % (Auto) 0.6 Neut # (Auto) 6.3 Lymph # (Auto) 1.3 [place] # (Auto) 0.7 Eos # (Auto) 0.1 Baso # (Auto) 0.0 Sodium 137 Potassium 4.3 Chloride 94 L Carbon Dioxide 35 H Anion Gap 13 BUN 9 Creatinine 0.6 L Est GFR ( Amer) > 60 Est GFR (Non-Af Amer) > 60 Random Glucose 98 Calcium 9.3 Phosphorus 4.8 H Magnesium 1.8 Iron 36 L TIBC 300 % Saturation 12 L Total Bilirubin 0.5 AST 22 ALT 19 Alkaline Phosphatase 87 Total Protein 7.1 Albumin 3.8 Globulin 3.2 Albumin/Globulin Ratio 1.2 Assessment & Plan (1) Umbilical hernia Status: Chronic Comment: repaired (2) DVT (deep venous thrombosis) Status: Chronic Comment: on eliquis (3) Hypertension Status: Chronic Priority: Low (4) Rheumatic mitral stenosis Status: Chronic (5) Bradycardia Status: Chronic Comment: hemodynamically stable, can be d/c f/u as outpt
[2018-12-27 06:05] VITALS: RESP 20
[2018-12-27 08:03] LABS: BLOOD UREA NITROGEN 17 mg/dL (7-17); CALCIUM 9.1 mg/dl (8.6-10.4); GFR NON-AFRICAN AMERICAN > 60
[2018-12-27 08:06] VITALS: BP 138/86; TEMP 98.2; O2SAT 98
[2018-12-27] MEDS: Enoxaparin 30 mg Syringe SC SCH (09:19)
--- NOTE | 2018-12-27 09:25 | CP.PCM.CON ---
<DaveRamez - Last Filed: 12/27/18 10:19> History of Present Illness - History of Present Illness History of Present Illness: PGY-1 Medicine Consult Note for Dr Hull Reason for consult: Medical management Patient is a 58 year old female with past medical history of HTN, HLD, CHF (diastolic dysfunction) chronic RLE DVT following previous hernia repiar, sinus bradycardia admitted under surgical service for hernia repair. Medicine is being consulted for general medical management. Patient has known stable bradycardia, typically has HRs in the 40s. She denies any chest pain or dyspnea. Doing well s/p hernia repair on 12/25. She endorses some abdominal pain post-surgery, but otherwise no acute somatic complaints. No fevers/chills, headaches, dizziness, sob, cough, n/v/d/c. 12 pt ROS reviewed and otherwise negative. PMHx: HTN, HLD, CHF, chronic RLE DVT, sinus bradycardia PSHx: ventral hernia repair Allergies: PCN, ibuprofen Home Medications: reviewed Family Hx: Social Hx: Review of Systems - Review of Systems All systems: reviewed and no additional remarkable complaints except Review of Systems: as per HPI Past Patient History - Infectious Disease Hx of Infectious Diseases: None - Tetanus Immunizations Tetanus Immunization: >10 years Ago - Past Medical History & Family History Past Medical History?: Yes - Past Social History Smoking Status: Never Smoked Chewing Tobacco Use: No Cigar Use: No Alcohol: None Drugs: Denies Home Situation {Lives}: With Family - CARDIAC Hx Atrial Fibrillation: No Hx Congestive Heart Failure: Yes (diastolic) Hx Hypercholesterolemia: Yes Hx Hypertension: Yes - PULMONARY Hx Respiratory Disorders: No - NEUROLOGICAL Hx Neurological Disorder: No - HEENT Hx HEENT Problems: No - RENAL Hx Chronic Kidney Disease: No - ENDOCRINE/METABOLIC Hx Endocrine Disorders: No - HEMATOLOGICAL/ONCOLOGICAL Hx Blood Disorders: No - INTEGUMENTARY Hx Dermatological Problems: No - MUSCULOSKELETAL/RHEUMATOLOGICAL Hx Arthritis: Yes - GASTROINTESTINAL Hx Gastrointestinal Disorders: No - GENITOURINARY/GYNECOLOGICAL Hx Genitourinary Disorders: No - PSYCHIATRIC Hx Substance Use: No - SURGICAL HISTORY Hx Section: Yes (2X) - ANESTHESIA Hx Anesthesia: Yes Hx Anesthesia Reactions: No Hx Malignant Hyperthermia: No Meds Allergies/Adverse Reactions: Allergies Allergy/AdvReac Type Severity Reaction Status Date / Time ibuprofen AdvReac Verified 12/25/18 10:37 Penicillins AdvReac Verified 12/25/18 10:37 - Medications Medications: Current Medications Acetaminophen (Tylenol 325mg Tab) 650 mg PO Q4 PRN PRN Reason: Pain, moderate (4-7) Last Admin: 12/27/18 05:41 Dose: 650 mg Docusate Sodium (Colace) 100 mg PO BID [facility] Last Admin: 12/26/18 09:53 Dose: 100 mg Enoxaparin Sodium (Lovenox) 30 mg SC 1000,2200 [facility] Last Admin: 12/26/18 21:41 Dose: 30 mg Hydralazine HCl (Apresoline) 25 mg PO Q8 [facility] Last Admin: 12/27/18 05:37 Dose: 25 mg Hydrochlorothiazide (Hydrodiuril) 25 mg PO DAILY [facility] Last Admin: 12/26/18 09:54 Dose: 25 mg Ketorolac Tromethamine (Toradol) 30 mg IVP Q6 PRN PRN Reason: pain Lisinopril (Zestril) 20 mg PO DAILY [facility] Last Admin: 12/26/18 10:15 Dose: 20 mg Pantoprazole Sodium (Protonix Inj) 40 mg IVP DAILY [facility] Last Admin: 12/26/18 09:53 Dose: 40 mg Physical Exam - Constitutional Appears: Non-toxic, No Acute Distress - Head Exam Head Exam: ATRAUMATIC, NORMAL INSPECTION, NORMOCEPHALIC - Eye Exam Eye Exam: EOMI, Normal appearance Pupil Exam: NORMAL ACCOMODATION - ENT Exam ENT Exam: Mucous Membranes Moist, Normal Exam - Neck Exam Neck exam: Positive for: Full Rom, Normal Inspection - Respiratory Exam Respiratory Exam: Clear to Auscultation Bilateral, NORMAL BREATHING PATTERN. absent: Accessory Muscle Use, Rales, Rhonchi, Wheezes, Respiratory Distress, Stridor - Cardiovascular Exam Cardiovascular Exam: Bradycardia, +S1, +S2 - GI/Abdominal Exam GI & Abdominal Exam: Normal Bowel Sounds, Soft, Tenderness (mild). absent: Distended, Firm, Guarding, Rebound, Rigid - Extremities Exam Extremities exam: Positive for: normal capillary refill, normal inspection, pedal pulses present. Negative for: calf tenderness, pedal edema - Back Exam Back exam: NORMAL INSPECTION - Neurological Exam Neurological exam: Alert, Oriented x3 - Skin Skin Exam: Dry, Intact, Normal Color, Warm Results - Vital Signs Recent Vital Signs: Last Vital Signs Temp 98.2 F 12/27/18 07:00 Pulse 48 L 12/27/18 07:10 Resp 20 12/27/18 07:00 BP 138/86 12/27/18 07:00 Pulse Ox 98 12/27/18 07:00 - Labs Result Diagrams: 12/26/18 06:54 12/27/18 07:21 Labs: Laboratory Results - last 24 hr 12/27/18 07:21 Sodium 136 Potassium 4.1 Chloride 96 L Carbon Dioxide 31 H Anion Gap 13 BUN 17 Creatinine 0.8 Est GFR ( Amer) > 60 Est GFR (Non-Af Amer) > 60 Random Glucose 94 Calcium 9.1 Assessment & Plan - Assessment and Plan (Free Text) Assessment: 58 year old female with past medical history of HTN, HLD, CHF, chronic DVT, sinus shamika admitted for hernia repair. Medicine consulted for general medical mgmt. Plan: Hernia repair -pain management as per primary team HFpEF -no reported chest pain or dyspnea -ECHO (06/08/17): mild concentric LVH. LV systolic function is normal, EF 65-70% . Moderate mitral valve stenosis, mild pulmonary HTN. -patient follows private Saw Operator (Dr. Hogue) -Cardiac recs appreciated: mitral stenosis is stable. Patient is hemodynamically stable and may f/u outpatient DVT, chronic -LE Duplex (11/26): DVT of R peroneal vein. Severe valvular incompetence noted bilaterally. -was discharged in November 2018 on [address] Eliquis by Dr. Christianson -will resume home Eliquis 5 mg PO BID Sinus bradycardia -not on any HR limiting medications -Cardiology recs (Dr. Hogue) appreciated -hemodynamically stable, can be d/c and followup outpatient HTN -currently normotensive, continue to monitor -c/w current meds -Lisinopril 20 mg PO daily -Hydralazine 25 mg PO q8 -HCTZ 25 mg PO daily PPx, Diet, Disposition -DVT: scds, eliquis -GI: protonix -Diet: heart healthy -Dispo: Patient is hemodynamically stable at this time. May follow up with primary physician and primary Saw Operator outpatient for further management. We will f/u abdominal pain, likely sign off tomorrow if pt remains stable. Case discussed with Dr. Della Acosta DO, PGY-1 <James Hull H - Last Filed: 12/27/18 15:10> Meds - Medications Medications: Current Medications Acetaminophen (Tylenol 325mg Tab) 650 mg PO Q4 PRN PRN Reason: Pain, moderate (4-7) Last Admin: 12/27/18 13:06 Dose: 650 mg Apixaban (Eliquis) 5 mg PO BID [facility] Last Admin: 12/27/18 10:18 Dose: Not Given Docusate Sodium (Colace) 100 mg PO BID [facility] Last Admin: 12/27/18 09:20 Dose: 100 mg Hydralazine HCl (Apresoline) 25 mg PO Q8 [facility] Last Admin: 12/27/18 13:07 Dose: 25 mg Hydrochlorothiazide (Hydrodiuril) 25 mg PO DAILY [facility] Last Admin: 12/27/18 09:19 Dose: 25 mg Ketorolac Tromethamine (Toradol) 30 mg IVP Q6 PRN PRN Reason: pain Lisinopril (Zestril) 20 mg PO DAILY [facility] Last Admin: 12/27/18 09:19 Dose: 20 mg Pantoprazole Sodium (Protonix Inj) 40 mg IVP DAILY [facility] Last Admin: 12/27/18 09:20 Dose: 40 mg Results - Vital Signs Recent Vital Signs: Last Vital Signs Temp 98.2 F 12/27/18 07:00 Pulse 57 L 12/27/18 12:16 Resp 20 12/27/18 07:00 BP 138/86 12/27/18 07:00 Pulse Ox 98 12/27/18 07:00 - Labs Result Diagrams: 12/26/18 06:54 12/27/18 07:21 Labs: Laboratory Results - last 24 hr 12/27/18 07:21 Sodium 136 Potassium 4.1 Chloride 96 L Carbon Dioxide 31 H Anion Gap 13 BUN 17 Creatinine 0.8 Est GFR ( Amer) > 60 Est GFR (Non-Af Amer) > 60 Random Glucose 94 Calcium 9.1 Attending/Attestation - Attestation I have personally seen and examined this patient.: Yes I have fully participated in the care of the patient.: Yes I have reviewed all pertinent clinical information: Yes Notes (Text): 12/27/18 15:04 Medical Consult: Patient was seen and examined by me. Agree with the above note by the medical writer The patient was not in any acute distress when I came and saw with the medical writer She was OOB and in chair. Reviewed lab work and it is stable at this time. Her Hgb has been stable, she is S/P hernia repair. She tells us that this is the second time that she has gone to the OR for this hernia. The patient also has a history of DVT as well and is on Eliquis BID for this. She has sinus bradycardia, she is being followed by her church communications administrator and she has a history of sinus shamika cardia for a long history James Hull
--- NOTE | 2018-12-27 10:48 | RAD ---
Date of service: 12/27/2018 HISTORY: pain, also has bradycardia COMPARISON: 12/25/2018 FINDINGS: LUNGS: The lungs are well inflated and clear. PLEURA: No pleural effusions or pneumothorax. CARDIOVASCULAR: There is severe cardiomegaly. There are early aortic atherosclerotic calcifications present. OSSEOUS STRUCTURES: Within normal limits for the patient's age. VISUALIZED UPPER ABDOMEN: Normal. OTHER FINDINGS: None. IMPRESSION: No active pulmonary disease.
[2018-12-27 12:49] VITALS: PULSE 57
== END 2018-12-27 17:06 | disposition home or self-care (01) | DRG 553 ==
LOC: C.ER 10:14 → C.9E 12:22 → C.5S 13:10 → OBSVTOIN 16:25 → C.9I 20:31 → C.6T 12-26 14:19
PROVIDERS: ADMIT Surgery; ATTEND Surgery
PROC: 0WQF0ZZ Repair Abdominal Wall, Open Approach (ICD-10-PCS; 2018-12-25)
PROC: 0WQF0ZZ Repair Abdominal Wall, Open Approach (ICD-10-PCS; 2018-12-25)
PROC: 0DNU0ZZ Release Omentum, Open Approach (ICD-10-PCS; 2018-12-25)
PROC: 06Q Lower Veins, Repair (ICD-10-PCS; 2018-12-25)
PROC: 0HX7XZZ Transfer Abdomen Skin, External Approach (ICD-10-PCS; principal; 2018-12-25 12:15)
DX: K42.9 Umbilical hernia without obstruction or gangrene (principal); I50.32 Chronic diastolic (congestive) heart failure; I82.501 Chronic embolism and thrombosis of unspecified deep veins of right lower extremity; I11.0 Hypertensive heart disease with heart failure; S36.893A Laceration of other intra-abdominal organs, initial encounter; K43.9 Ventral hernia without obstruction or gangrene; K66.0 Peritoneal adhesions (postprocedural) (postinfection); Z79.01 Long term (current) use of anticoagulants; E78.00 Pure hypercholesterolemia, unspecified; R00.1 Bradycardia, unspecified; I48.91 Unspecified atrial fibrillation; I05.0 Rheumatic mitral stenosis; Y65.8 Other specified misadventures during surgical and medical care